=== PATIENT | female | born 1985 | race Caucasian/White ===

== ENCOUNTER → 2017-11-02 | Outpatient (CLI) | payer MEDICAID ==
[~2017-11-02] MED LIST: ENOX100S5 SQ; FERR324T8 PO; IBUP-1223 PO; OXYC1TAB7 PO; OXYC1TAB8 PO; SENN-52 PO; SIME80TA16 PO; WARF-36 PO; WARF2.5T73 PO
== END ==
LOC: RAD 17:49
PROVIDERS: ATTEND Family Medicine
DX: R22.32 Localized swelling, mass and lump, left upper limb (principal)